=== PATIENT | female | born 1975 | race Caucasian/White ===

== ENCOUNTER 2017-03-06 15:04 | Inpatient (IN) | payer OTHER ==
[~2017-03-06] VITALS: Ht 152.4 cm; Wt 90.7 kg
[2017-03-06 15:42] VITALS: BP_SYST 123
--- NOTE | 2017-03-06 16:10 | NUR ---
Ambulatory to bed 6, placed in gown for evaluation
--- NOTE | 2017-03-06 16:34 | NUR ---
PT PRESENTS TO ED WITH ABD PAIN /. PT REPORT PAIN STARTED THIS AM. PT DID NOT TAKE ANY PAIN MEDICATION AT HOME. HX OF CHOLECYSTECTOMY. A&OX 4.
--- NOTE | 2017-03-06 16:40 | NUR ---
Dr Mcintyre at bedside examining patient
[2017-03-06] MEDS ORDERED: MORPHINE 4 MG/ML INJ. SYRINGE IVP ONE (16:45)
[2017-03-06] MEDS ORDERED: DIPHENHYDRAMINE INJ 50 MG/ML VIAL IVP ONE (16:45)
--- NOTE | 2017-03-06 16:50 | NUR ---
# 20 gauge angiocath placed to LEFT HAND. Use of asceptic technique. Opsite placed over site. Blood return noted. Flushed with 10 cc of normal saline. No evidence of infiltration noted. Patient tolerated well.
[2017-03-06 17:07] LABS: BILIRUBIN,URINE NEGATIVE (NEGATIVE); BLOOD, URINE NEGATIVE (NEGATIVE); CLARITY/URINE CLEAR (CLEAR); COLOR,URINE YELLOW (YELLOW); GLUCOSE,URINE NEGATIVE (NEGATIVE); KETONES,URINE NEGATIVE (NEGATIVE); LEUKOCYTE ESTERASE ,URINE TRACE (NEGATIVE); NITRITE, URINE NEGATIVE (NEGATIVE); PH,URINE 6.5 (5.0-8.0); PROTEIN URINE NEGATIVE (NEGATIVE); UROBILINOGEN,URINE 0.2 (0.2-1.0)
[2017-03-06 17:10] LABS: BASOPHILS # (AUTO) 0.1 K/uL (0.0-0.2); BASOPHILS % (AUTO) 0.7 % (0.0-2.0); EOSINOPHILS # (AUTO) 0.2 K/uL (0.0-0.4); EOSINOPHILS % (AUTO) 1.1 % (0.0-4.0); HEMATOCRIT 35.5 % (36-48); HEMOGLOBIN 11.5 g/dL (12.0-16.0); LYMPHOCYTES # (AUTO) 3.4 K/uL (1.0-5.5); LYMPHOCYTES % (AUTO) 24.9 % (20.5-51.5); MEAN CORPUSCULAR HEMOGLOBIN 29 pg (27-31); MEAN CORPUSCULAR HGB CONC 32 % (32-36); MEAN CORPUSCULAR VOLUME 89 fL (79.0-98.0); MONOCYTES # (AUTO) 1.1 K/uL (0.0-1.0); MONOCYTES % (AUTO) 7.7 % (1.7-9.3); NEUTROPHILS % (AUTO) 65.6 % (40.0-70.0); PLATELET COUNT (AUTO) 256 K/uL (130-430); RED BLOOD CELL COUNT(AUTO) 3.99 MIL/uL (4.2-6.2); RED CELL DISTRIBUTION WIDTH 18.8 % (9.0-15.0); WHITE BLOOD COUNT (AUTO) 13.8 K/uL (4.8-10.8)
[2017-03-06 17:28] LABS: CALCIUM 8.5 mg/dL (8.4-11.0); CREATININE 0.76 mg/dL (0.55-1.30); POTASSIUM 4.1 mmol/L (3.5-5.1)
[2017-03-06 17:32] LABS: ALBUMIN 3.6 g/dL (3.4-4.8); TOTAL BILIRUBIN 0.8 mg/dL (0.0-1.0)
[2017-03-06 17:34] LABS: PROTHROMBIN TIME 10.6 SECS (9.5-12.5)
[2017-03-06 17:39] LABS: BACTERIA,URINE MODERATE /HPF (None Seen); FINE GRANULAR CASTS,URINE 0-1 /LPF (None Seen); MUCUS,URINE 2+ /LPF (None Seen)
--- NOTE | 2017-03-06 18:09 | NUR ---
ASSISTED PT UP TO BATHROOM. PT IS STEADY ON HER FEET
[2017-03-06] MEDS: CIPROFLOXACIN HCL 500 MG TABLET PO ONE ×2 (18:50→18:52)
[2017-03-06] MEDS ORDERED: MORPHINE 2 MG/ML INJ. SYRINGE IVP ONE (19:00)
[2017-03-06] MEDS ORDERED: PANTOPRAZOLE SODIUM 40 MG/VIAL (PROTONIX) IVP ONE (19:00)
--- NOTE | 2017-03-06 19:02 | NUR ---
ADMIN MEDICATION ORDERED. PT ANDREEA WELL.
[2017-03-06] MEDS ORDERED: LEVO150T8 PO (19:31)
--- NOTE | 2017-03-06 19:36 | NUR ---
Patient will be admitted to care of Dr Celis. Admitted to Med Surg unit. Will go to room 116-B. Belongings list completed. Summary report printed. Report will be given at bedside.
[2017-03-06] MEDS ORDERED: ACET-2165 PO ×2 (19:39→19:40)
[2017-03-06] MEDS ORDERED: MAGN400O4 PO (19:41)
[2017-03-06] MEDS ORDERED: LISI-600 PO (19:44)
[2017-03-06] MEDS ORDERED: ANT30 PO (19:44)
--- NOTE | 2017-03-06 19:44 | NUR ---
ADMISSION NOTE Received patient from ER via joan, received report from NICHOLAS HINTON. Patient admitted with diagnosis of ENTERITIS. Patient oriented to hospital routine, call light, toileting and safety-patient verbalized understanding.
[2017-03-06] MEDS ORDERED: SENN-104 PO (19:45)
[2017-03-06] MEDS ORDERED: PROP10TA10 PO (19:46)
[2017-03-06] MEDS ORDERED: ESCI20TA PO (19:46)
[2017-03-06] MEDS ORDERED: SER100 PO (19:47)
[2017-03-06 19:48] VITALS: BP_SYST 115
--- NOTE | 2017-03-06 19:50 | NUR ---
INITIAL ASSESSMENT PATIENT AWAKE, ALERT, ORIENTED X4. ABLE TO MAKE NEEDS KNOWN. PATIENT ABLE TO MOVE ALL EXTREMITIES, DENIES OF ANY PAIN AT THIS TIME. PATIENT ENCOURAGED TO USE CALL LIGHT FOR ASSISTANCE, CALL LIGHT AND PERSONAL ITEMS AT BEDSIDE.
[2017-03-06] MEDS ORDERED: ACETAMINOPHEN 325 MG TABLET PO PRN (21:00)
[2017-03-06] MEDS ORDERED: HYDROcodone/ACETAMIN 5-325 MG TAB (NORCO/ VICODIN) PO PRN (21:00)
[2017-03-06] MEDS ORDERED: MORPHINE 4 MG/ML INJ. SYRINGE IVP PRN (21:00)
[2017-03-06] MEDS ORDERED: FAMOTIDINE PF 20 MG/2 ML VIAL IVP ONE (21:00)
[2017-03-06] MEDS ORDERED: TEMAZEPAM 15 MG CAPSULE PO PRN (21:00)
[2017-03-06] MEDS ORDERED: ONDANSETRON HCL 4 MG/2 ML VIAL IVP PRN (21:00)
[2017-03-06] MEDS: CIPROFLOXACIN HCL 500 MG TABLET PO SCH (21:13)
[2017-03-06] MEDS: metroNIDAZOLE 500 MG TABLET PO SCH (21:13)
[2017-03-06] MEDS: LACTOBACILLUS RHAMNOSUS GG 1 CAP CAPSULE PO SCH (21:13)
[2017-03-06] MEDS: LR 1,000 ML IV SCH (21:13)
--- NOTE | 2017-03-06 21:31 | NUR ---
Medication Medication administered safely per MD order. Patient tolerated medication well. Side effects explained. Patient verbalized understanding. Patient denies any pain at this time.
--- NOTE | 2017-03-06 21:42 | NUR ---
GI Consultation Paged Reason for consultation: Abd Pain Was consult called: Yes Person who was notified: Sophy Consulting Physician: Dr Tapia Director On Air Director On Air Specialty: GI Ordered By: Dr Celis
--- NOTE | 2017-03-06 23:00 | NUR ---
ROUNDS/Pain Medication Patient assisted to toilet by nurse safely. Patient returned to her bed, bed alarm on. Pain medication prn administered per order for patient abdomen pain stated of 6/10 aching and dull generalized. Encourage patient to call for assistance, call light in reach.
[2017-03-07] VITALS: BP_SYST 102
--- NOTE | 2017-03-07 01:22 | NUR ---
ROUNDS PATIENT ASLEEP IN BED AT THIS TIME, EASILY AROUSABLE. DENIES ANY PAIN AT THIS TIME.BED IN LOWEST POSITION, ALARM ON.
--- NOTE | 2017-03-07 03:00 | NUR ---
ROUNDS PATIENT ASLEEP AT THIS TIME. BED ALARM AND SCDS ON. IV FLUIDS INFUSING. DENIES ANY PAIN AT THIS TIME. BED IN LOWEST POSITION.
[2017-03-07 03:37] VITALS: BP_SYST 105
--- NOTE | 2017-03-07 05:20 | NUR ---
Rounds Patient asleep at this time. IV fluids infusing, no complication. Patient appears to be in no distress or pain. Bed in lowest position with bed alarm on.
[2017-03-07] MEDS: metroNIDAZOLE 500 MG TABLET PO SCH ×2 (05:48→14:25)
--- NOTE | 2017-03-07 05:49 | NUR ---
Medication Administered antibiotic flagyl po at this time per MD order. No complications. Patient denies any pain at this time.
--- NOTE | 2017-03-07 06:08 | NUR ---
Closing notes: Patient resting in bed at this time. Denies any discomfort. Needs attended to and met. Patient with iv fluids infusing, no complications. Patient with SCD's on bilateral calfs and on. Bed in lowest position with bed alarm. Encourage patient to call nurse for collection of bowel movement, per MD order. Patient verbalized understanding.
[2017-03-07 07:58] LABS: BASOPHILS # (AUTO) 0.1 K/uL (0.0-0.2); BASOPHILS % (AUTO) 0.7 % (0.0-2.0); EOSINOPHILS # (AUTO) 0.4 K/uL (0.0-0.4); EOSINOPHILS % (AUTO) 3.8 % (0.0-4.0); HEMATOCRIT 33.6 % (36-48); HEMOGLOBIN 11.1 g/dL (12.0-16.0); LYMPHOCYTES # (AUTO) 3.3 K/uL (1.0-5.5); LYMPHOCYTES % (AUTO) 31.8 % (20.5-51.5); MEAN CORPUSCULAR HEMOGLOBIN 29 pg (27-31); MEAN CORPUSCULAR HGB CONC 33 % (32-36); MEAN CORPUSCULAR VOLUME 89 fL (79.0-98.0); NEUTROPHILS # (AUTO) 5.6 K/uL (1.8-7.7); NEUTROPHILS % (AUTO) 53.7 % (40.0-70.0); PLATELET COUNT (AUTO) 247 K/uL (130-430); RED BLOOD CELL COUNT(AUTO) 3.79 MIL/uL (4.2-6.2); RED CELL DISTRIBUTION WIDTH 18.8 % (9.0-15.0); WHITE BLOOD COUNT (AUTO) 10.4 K/uL (4.8-10.8)
[2017-03-07 08:00] VITALS: BP_SYST 96
[2017-03-07 08:08] LABS: ALANINE AMINOTRANSFERASE 21 U/L (12-78); ASPARTATE AMINOTRANSFERASE 13 U/L (10-37); CALCIUM 7.8 mg/dL (8.4-11.0); CHLORIDE 109 mmol/L (98-107); CREATININE 0.82 mg/dL (0.55-1.30); GLUCOSE 94 mg/dL (70-99); POTASSIUM 3.8 mmol/L (3.5-5.1); SODIUM SERUM 139 mmol/L (136-145); TOTAL BILIRUBIN 1.3 mg/dL (0.0-1.0); UREA NITROGEN, BLOOD 15 mg/dL (8-21)
--- NOTE | 2017-03-07 08:09 | NUR ---
OPENING RECEIVED REPORT FROM NIGHT RN. PT RESTING IN BED WITH NO S/S OF DISTRESS OR SOB AND NO CURRENT COMPLAINTS. VITAL SIGNS STABLE. IV INTACT AND PATENT WITH LR @[address] OF ABD AND STOOL RESULT PENDING. PLAN FOR GI CONSULT. BED IN LOWEST POSITION. WILL CONTINUE TO MONITOR.
[2017-03-07 08:11] LABS: GFR AFRICAN AMERICAN 100 mL/min (>90)
[2017-03-07 08:12] LABS: ANION GAP < 3 (5-15)
[2017-03-07] MEDS: LACTOBACILLUS RHAMNOSUS GG 1 CAP CAPSULE PO SCH (08:36)
[2017-03-07] MEDS ORDERED: FAMOTIDINE PF 20 MG/2 ML VIAL IVP SCH (09:00)
--- NOTE | 2017-03-07 10:00 | NUR ---
ROUNDS PT RESTING IN BED WITH NO S/S OF DISTRESS OR SOB. NO CURRENT COMPLAINTS. MEDS GIVEN. DIET CHANGED TO REGULAR. US ORDERED PER MD. CALL [place] WITHIN REACH. BED IN LOWEST POSITION. WILL CONTINUE TO MONITOR
[2017-03-07] MEDS: CIPROFLOXACIN HCL 500 MG TABLET PO SCH (10:59)
[2017-03-07 12:00] VITALS: BP_SYST 107
--- NOTE | 2017-03-07 12:00 | NUR ---
NOTE: PATIENT IS RESTING COMFORTABLY IN BED. NO S/S OF DISTRESS OR SOB. PATIENT IS ALERT AND ORIENTED, ABLE TO EXPRESS NEEDS, AND ASK FOR ASSISTANCE. PATIENT IS WAITING FOR MD AND WANTS TO GO HOME. CALL LIGHT IN REACH, BED IN LOWEST POSITION, AND WILL CONTINUE TO MONITOR.
[2017-03-07] MEDS: LR 1,000 ML IV SCH (12:43)
[2017-03-07 14:13] VITALS: BP_SYST 114
[2017-03-07] MEDS ORDERED: CIPR-211 PO (14:19)
[2017-03-07] MEDS ORDERED: L.RH1CAP PO (14:20)
[2017-03-07] MEDS ORDERED: METR500T PO (14:20)
--- NOTE | 2017-03-07 14:55 | NUR ---
D/C Patient Patient given medication reconciliation form and D/C instructions. Exit Care provided. Patient verbalized understanding. MD discussed with patient the results and treatment provided. Ambulatory with steady gait for discharge to home. Patient in stable condition, ID band removed. IV catheter removed, intact and dressing applied, no active bleeding. Rx of Cipro, Flagyl, and probiotics given. Patient educated on pain management. All belongings sent with patient.
[2017-03-07 15:30] VITALS: BP_SYST 104
== END 2017-03-07 14:55 | disposition home or self-care (01) | DRG 690 ==
LOC: SED 15:04 → SMU 19:12
PROVIDERS: ADMIT Internal Medicine; ATTEND Internal Medicine
DX: N39.0 Urinary tract infection, site not specified (principal); N28.1 Cyst of kidney, acquired; K52.9 Noninfective gastroenteritis and colitis, unspecified; M19.90 Unspecified osteoarthritis, unspecified site; J45.909 Unspecified asthma, uncomplicated; E03.9 Hypothyroidism, unspecified; E66.9 Obesity, unspecified; Z68.39 Body mass index [BMI] 39.0-39.9, adult; Z79.899 Other long term (current) drug therapy; Z88.1 Allergy status to other antibiotic agents; Z90.49 Acquired absence of other specified parts of digestive tract
CPT/HCPCS: 36415; 76770; 80053; 81000-TC; 81025; 83605; 83690-TC; 85025; 85610-TC; 87040-TC; 87086; 93005; 96374; 96375; 96376; 99285; C9113; J1200; J2270; J3490; J7120